=== PATIENT | female | born 1965 | race Two or more races ===

== ENCOUNTER → 2023-03-17 07:47 | Outpatient (REF) | payer MEDICAID, SELFPAY ==
--- NOTE | 2023-03-17 08:10 | CA_ITS ---
Acquisition Time: 2023-03-17 08:29:18 Total Exercise Time: 00:03:36 Test Indications: SOBVARGAS Medications: SEE H Protocol: LEI Max HR: 144 BPM 88% of Pred: 162 BPM Max BP: 150/088 mmHG Max Work Load: 5.2 METS Exercise stress test exercise 3 min 36 sec of Lei protocol acheiving 89% MPHR, with request to stop due to moderate to severe SOB, without chest discomfort, with normotensive response to exercise, without EKG changes at achieved workload. Test reviewed with Dr. Cavazos. Referred By: Alexandria Silva Overread By: Adri Peters
== END ==
LOC: HO.CARD 07:47
PROVIDERS: PCP Family Medicine; Visit Provider Family Medicine
DX: R06.09 Other forms of dyspnea (principal)
CPT/HCPCS: 93017

== ENCOUNTER → 2023-03-17 08:10 | Outpatient (BNV) | payer MEDICAID, SELFPAY | PROVIDERS: PCP Family Medicine; Visit Provider Nurse Practitioner | DX: R06.09 Other forms of dyspnea (principal) | CPT/HCPCS: 93016; 93018 ==

== ENCOUNTER 2023-04-11 09:22 | Outpatient (REF) | payer MEDICAID, SELFPAY ==
[2023-04-11 14:24] LABS: MANUAL DIFF FLAG NO
[2023-04-11 14:29] LABS: Basophils Absolute Auto 0.1 X10*3/uL (0.0-0.2); Basophils Percent Auto 0.6 % (0-2); Eosinophils Absolute Auto 0.2 X10*3/uL (0.0-0.4); Eosinophils Percent Auto 1.7 % (0-4); Hematocrit 38.7 % (37.0-47.0); Hemoglobin 11.8 g/dl (12.0-16.0); Imm Gran Abs Auto 0.03 X10*3/uL (0.00-0.03); Imm Gran Pct Auto 0.3 % (0.0-0.4); Lymphocytes Absolute Auto 4.1 X10*3/uL (1.2-4.9); Mean Corpuscular HGB Conc 30.5 g/dl (31.0-35.0); Mean Corpuscular Hemoglobin 26.5 pg (27.0-33.0); Mean Corpuscular Volume 86.8 fL (80.0-98.0); Mean Platelet Volume 10.7 fL (9.4-12.3); Monocytes Absolute Auto 0.6 X10*3/uL (0.1-1.2); Monocytes Percent Auto 5.7 % (2-11); Neutrophils Absolute Auto 5.3 x10*3/uL (2.0-8.3); Neutrophils Percent Auto 51.7 % (45-73); Platelet Count 336 X10*3/uL (160-400); Red Blood Count 4.46 X10*6/uL (4.20-5.50); Red Cell Distribution Width 15.2 % (11.0-16.0); White Blood Count 10.3 X10*3/uL (4.8-10.8)
[2023-04-11 15:01] LABS: Alanine Aminotransferase 12 U/L (0-31); Albumin Level 3.8 g/dL (3.5-5.0); Alkaline Phosphatase 144 U/L (39-117); Anion Gap 13 (12-20); Aspartate Amino Transferase 12 U/L (5-31); Bilirubin Total 0.3 mg/dL (0.0-1.0); Blood Urea Nitrogen 14 mg/dL (9-16); Calcium 9.4 mg/dL (8.4-10.2); Carbon Dioxide 26 mmol/L (22-29); Chloride 108 mmol/L (96-108); Cholesterol 137 mg/dL (<200); Estimated Glomerular Filt Rate 59; Glucose Fasting 99 mg/dL (60-99); HDL Cholesterol 44 mg/dL (>40); LDL Cholesterol Calculated 65 mg/dL (<100); Sodium 143 mmol/L (135-145); Total Protein 7.7 g/dL (6.5-8.0); Triglycerides 140 mg/dL (<150)
[2023-04-11 15:15] LABS: Ferritin 23 ng/mL (10-250)
[2023-04-11 15:20] LABS: Creatinine Urine 123.58 mg/dL; Microalbum/Creatinine Ratio Ur 25.8 ug/mg cr (<30)
[2023-04-12 04:12] LABS: HBS Num1 0.21 mIU/mL (0-7.99); ~Hepatitis B Surface Antibody NONREACTIVE (Nonreactive)
== END 2023-04-11 09:23 | disposition home or self-care (01) ==
LOC: HO.CHCLDS 09:22
PROVIDERS: Visit Provider Family Medicine
DX: E11.9 Type 2 diabetes mellitus without complications (principal); M79.89 Other specified soft tissue disorders; E61.1 Iron deficiency
CPT/HCPCS: 36415; 80053; 80061; 82043; 82570; 82728; 84443; 85025; 86706

== ENCOUNTER 2023-04-13 09:19 | Outpatient (REF) | payer MEDICAID, SELFPAY | END 2023-04-13 09:20 | disposition home or self-care (01) | LOC: HO.MAMMO 09:19 | PROVIDERS: PCP Family Medicine; Visit Provider Family Medicine | DX: Z12.31 Encounter for screening mammogram for malignant neoplasm of breast (principal) | CPT/HCPCS: 77063; 77067 ==

== ENCOUNTER → 2023-04-13 09:45 | Outpatient (BNV) | payer MEDICAID, SELFPAY | PROVIDERS: PCP Family Medicine; Visit Provider Radiology Diagnostic Radiology | DX: Z12.31 Encounter for screening mammogram for malignant neoplasm of breast (principal) | CPT/HCPCS: 77063; 77067 ==

== ENCOUNTER 2023-04-14 08:56 | Outpatient (REF) | payer MEDICAID, SELFPAY ==
[2023-04-14 14:38] LABS: Alkaline Phosphatase 143 U/L (39-117); Gamma Glutamyl Transpeptidase 43 U/L (7-33)
== END 2023-04-14 08:57 | disposition home or self-care (01) ==
LOC: HO.CHCLDS 08:56
PROVIDERS: Visit Provider Family Medicine
DX: R74.8 Abnormal levels of other serum enzymes (principal)
CPT/HCPCS: 36415; 82977; 84075

== ENCOUNTER 2023-05-02 09:41 | Outpatient (REF) | payer MEDICAID, SELFPAY ==
--- NOTE | ~2023-05-02 | US_ITS ---
EXAMINATION: US ABDOMEN COMPLETE CLINICAL INFORMATION: Transaminitis. COMPARISON: None available. TECHNIQUE: Real-time imaging of the abdominal viscera. FINDINGS: PANCREAS: Normal. ABDOMINAL AORTA: The upper abdominal aorta is normal in caliber. The distal abdominal aorta is obscured by bowel gas. INFERIOR VENA CAVA: Visualized portions are normal. LIVER: The liver is normal in size. The liver contour is normal. There is diffuse increased liver parenchymal echogenicity, consistent with hepatic steatosis. No focal hepatic lesion. There is no intrahepatic biliary duct dilatation seen. GALLBLADDER: Surgically absent. COMMON BILE DUCT: The common bile duct measures 1.1 cm in diameter likely compensation for cholecystectomy. RIGHT KIDNEY: Multiple small simple cysts. No hydronephrosis. Numerous tiny echogenic reflectors possibly representing calculi versus vascular calcifications. The kidney measures 12.5 cm in maximum dimension. LEFT KIDNEY: Multiple small simple cysts. No hydronephrosis. Numerous tiny echogenic reflectors possibly representing calculi versus vascular calcifications. The kidney measures 12.7 cm in maximum dimension. SPLEEN: Normal. The spleen measures 8.0 cm in maximum dimension. FREE FLUID: None. US/US abdomen complete IMPRESSION: Hepatic steatosis. Numerous small simple cysts throughout both kidneys. No imaging follow-up is recommended. Numerous tiny echogenic foci within both kidneys possibly representing nonobstructing calculi versus vascular calcifications.
== END 2023-05-02 09:42 | disposition home or self-care (01) ==
LOC: HO.US 09:41
PROVIDERS: PCP Family Medicine; Visit Provider Family Medicine
DX: R74.01 Elevation of levels of liver transaminase levels (principal)
CPT/HCPCS: 76700

== ENCOUNTER 2023-09-05 10:02 | Outpatient (REF) | payer MEDICAID, SELFPAY ==
[2023-09-05 14:42] LABS: MANUAL DIFF FLAG NO
[2023-09-05 14:54] LABS: Basophils Absolute Auto 0.1 X10*3/uL (0.0-0.2); Basophils Percent Auto 0.5 % (0-2); Eosinophils Absolute Auto 0.1 X10*3/uL (0.0-0.4); Eosinophils Percent Auto 1.3 % (0-4); Hematocrit 40.3 % (37.0-47.0); Hemoglobin 12.3 g/dl (12.0-16.0); Imm Gran Abs Auto 0.06 X10*3/uL (0.00-0.03); Imm Gran Pct Auto 0.6 % (0.0-0.4); Lymphocytes Absolute Auto 4.1 X10*3/uL (1.2-4.9); Lymphocytes Percent Auto 41.1 % (20-40); Mean Corpuscular HGB Conc 30.5 g/dl (31.0-35.0); Mean Corpuscular Hemoglobin 27.3 pg (27.0-33.0); Mean Corpuscular Volume 89.4 fL (80.0-98.0); Mean Platelet Volume 10.2 fL (9.4-12.3); Monocytes Absolute Auto 0.6 X10*3/uL (0.1-1.2); Monocytes Percent Auto 6.1 % (2-11); Neutrophils Absolute Auto 5.1 x10*3/uL (2.0-8.3); Neutrophils Percent Auto 50.4 % (45-73); Platelet Count 371 X10*3/uL (160-400); Red Blood Count 4.51 X10*6/uL (4.20-5.50); Red Cell Distribution Width 15.5 % (11.0-16.0)
[2023-09-05 15:33] LABS: Iron 66 mcg/dL (30-160); Percent Iron Saturation 20 % (15-50); Total Iron Binding Capacity 334 mcg/dL (228-428); Unsaturated Iron Binding 268 ug/dL
[2023-09-05 15:38] LABS: Ferritin 47 ng/mL (10-250)
== END 2023-09-05 10:03 | disposition home or self-care (01) ==
LOC: HO.CHCLDS 10:02
PROVIDERS: Visit Provider Family Medicine
DX: E61.1 Iron deficiency (principal)
CPT/HCPCS: 36415; 82728; 83540; 85025

== ENCOUNTER 2023-09-27 12:43 | Outpatient (AMB) | payer MEDICAID, SELFPAY ==
--- NOTE | 2023-09-27 13:09 | A.OFFVIS_ITS ---
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 arredondo/dyspnea on exertion Intake Note: New patient dx sob on exertion also c/o fatigue Optical Laboratory Technician Required: Yes Optical Laboratory Technician [place] [facility] [place] Darwin sullivan Allergies Penicillins Allergy (Mild, Verified 09/27/23 13:20) Rash Medication List - Last Reconciled 09/27/23 by Jose Cavazos MD acetaminophen ER 650 mg PO Q8H PRN atorvastatin 40 mg PO DAILY clindamycin HCl 150 mg PO QID gabapentin 800 mg PO BEDTIME hydrochlorothiazide 12.5 mg PO QAM levothyroxine 100 mcg PO DAILY lisinopril 40 mg PO QAM metformin 500 mg PO ropinirole 0.5 mg PO BID HPI HPI Comments History of Present Illness Details Cristina was referred here for evaluation of exertional symptoms. She has a 58-year-old female, history obtained with help of for certified pigment mixer over the telephone. Patient with at least 4 years' history of hypertension, diabetes, hyperlipidemia as well as obesity. Patient was referred here because over the last 6 months she has been having increasing symptoms of exertional shortness of breath and fatigue. She only gets this symptoms when she is going up a flight of stairs or walking up an incline. She does not get associated chest pain. She denies any symptoms of orthopnea, PND, leg edema. Denies any symptoms of prolonged palpitation irregular heartbeat. No lightheadedness, syncope. She takes all her medications. [facility] Medical History Obesity Hyperlipidemia Diabetes HTN (hypertension) Surgical History Hx of tonsillectomy Family History Father CAD (coronary artery disease) Mother HTN (hypertension) Social History Patient Tobacco Use Status: Never used Tobacco Review of Systems Const Denies chills, Denies daytime sleepiness, Denies fatigue, Denies fever(s), Denies frequent falls, Denies poor appetite, Denies snoring, Denies stops breathing during sleep, Denies weakness, Denies weight gain and Denies weight loss Eyes Denies loss of vision ENT Denies dizziness and Denies hearing loss Card Denies chest pain, Denies claudication, Denies leg edema, Denies lightheadedness, Denies palpitations, Denies dyspnea, Denies dyspnea on exertion and Denies orthopnea Resp Denies cough, Denies excessive phlegm production, Denies dyspnea, Denies dyspnea on exertion, Denies snoring and Denies wheezing GI Denies abdominal pain, Denies hematochezia, Denies change in bowel habits, Denie s nausea and Denies vomiting Denies urinary frequency and Denies dysuria Musc Denies arthralgias, Denies muscle weakness, Denies numbness and Denies other (frequent falls) Skin/Breast Denies nail changes and Denies rash Neuro Denies Abnormal speech present, Denies dizziness, Denies frequent falls, Denies loss of vision, Denies memory loss, Denies numbness and Denies weakness Psych Denies depression and Denies memory loss Endo Denies fatigue and Denies palpitations Milton/Lymph Reports easy bruising and Reports other (anemia) Aller/Immun Denies wheezing Physical Exam Vital Signs: Last Vital Signs Pulse 73 09/27/23 13:13 BP 120/76 09/27/23 13:13 BMI result Body Mass Index 49.9 Const General: cooperative, comfortable, no acute distress, alert and awake Nutritional Appearance: obese centrally obese Orientation/consciousness: patient oriented x3 Limitations: ambulation with cane HEENT Head: Yes normocephalic and Yes atraumatic Neck Neck: Yes trachea midline, Yes supple and Yes no JVD Resp Effort & Inspection: normal respiratory effort Auscultation: clear to auscultation bilaterally Cardio Jugular venous distension: no JVD Palpation: normal PMI Rate: regular rate Rhythm: regular rhythm Heart sounds: S1 normal heart sound present, S2 normal heart sound present, no click, no gallops, no murmurs and no rubs GI Auscultation: normal bowel sounds Skin General skin exam: no rashes or lesions noted Neuro General: patient oriented x3 and no focal motor deficits Speech: No Abnormal speech present Extrem General: Yes no clubbing, cyanosis or edema Office Procedures EKG Details: EKG shows normal sinus rhythm with diffuse T-wave changes in the anterior and anterolateral and high lateral leads most likely suggestive of repolarization abnormality 08234-[id number], Complete Assessment & Plan Assessment & Plan (1) SOB (shortness of breath) on exertion: Code(s): R06.02 - Shortness of breath Plan: New onset exertional shortness of breath in this middle-aged woman with multiple risk factors for obstructive coronary artery disease. Will obtain a vasodilating myocardial perfusion imaging as patient can not walk on the treadmill. Will also obtain echocardiogram to evaluate LV systolic and diastolic function to evaluate for pulmonary hypertension as a cause of her exertional shortness of breath. If these tests are within acceptable limits, likely that this could be related to restrictive pulmonary defect related to obesity and/or deconditioning from her lack of exercise. Also consider pulmonary evaluation at that point in time. A blood pressure is currently well optimized. Advised to continue current therapy. Importance of good blood pressure control was discussed. Continue CPAP therapy. Aggressive participate in weight loss program should be pursued. Diabetes under your care with goal he moglobin A1c less than 7%. Goal LDL less than 70 mg/dL. Will follow up in the clinic in 6 weeks time after testing. Thank you for allowing me to partake in the care Coding Level of Care Code New Pt Level 4 (49553) Diagnoses SOB (shortness of breath) on exertion R06.02 CPT Codes EKG - CPT: 62175-[id number], Complete ([id number])
[2023-09-27 13:13] VITALS: BP 120/76; PULSE 73; BMI 49.9
== END 2023-09-27 13:47 | disposition home or self-care (01) ==
PROVIDERS: PCP Family Medicine; Visit Provider Internal Medicine Cardiovascular Disease
DX: R06.02 Shortness of breath (principal)
CPT/HCPCS: 93010; 99204

== ENCOUNTER → 2023-09-27 12:43 | Outpatient (BNVA) | payer MEDICAID, SELFPAY | PROVIDERS: PCP Family Medicine; Visit Provider Internal Medicine Cardiovascular Disease | DX: R06.02 Shortness of breath (principal) | CPT/HCPCS: 93005; 99202 ==

== ENCOUNTER 2023-10-26 10:06 | Outpatient (REF) | payer MEDICAID, SELFPAY | END 2023-10-26 10:07 | disposition home or self-care (01) | LOC: HO.SH 10:06 | PROVIDERS: PCP Family Medicine; Visit Provider Family Medicine | DX: Z01.118 Encounter for examination of ears and hearing with other abnormal findings (principal); H90.41 Sensorineural hearing loss, unilateral, right ear, with unrestricted hearing on the contralateral side | CPT/HCPCS: 92557; 92567 ==

== ENCOUNTER 2023-11-25 09:13 | Outpatient (REF) | payer MEDICAID, SELFPAY ==
[2023-11-25 15:06] LABS: Anion Gap 17 (12-20); Blood Urea Nitrogen 36 mg/dL (9-16); Calcium 9.1 mg/dL (8.4-10.2); Carbon Dioxide 24 mmol/L (22-29); Chloride 104 mmol/L (96-108); Estimated Glomerular Filt Rate 32; Glucose Random 94 mg/dL (60-115); Sodium 141 mmol/L (135-145); Uric Acid 13.2 mg/dL (2.4-5.7)
== END 2023-11-25 09:14 | disposition home or self-care (01) ==
LOC: HO.CHCLDS 09:13
PROVIDERS: Visit Provider Family Medicine
DX: N17.9 Acute kidney failure, unspecified (principal); M19.90 Unspecified osteoarthritis, unspecified site
CPT/HCPCS: 36415; 80048; 84550

== ENCOUNTER 2023-12-22 11:41 | Outpatient (REF) | payer MEDICAID, SELFPAY ==
[2023-12-22 14:39] LABS: Uric Acid 7.3 mg/dL (2.4-5.7)
== END 2023-12-22 11:42 | disposition home or self-care (01) ==
LOC: HO.CHCLDS 11:41
PROVIDERS: Visit Provider Student in an Organized Health Care Education/Training Program
DX: M10.9 Gout, unspecified (principal)
CPT/HCPCS: 36415; 84550

== ENCOUNTER → 2023-12-29 10:43 | Outpatient (REF) | payer MEDICAID, SELFPAY ==
--- NOTE | 2023-12-29 10:47 | CA_ITS ---
Transthoracic Echocardiogram Patient (Last, First, Middle): Cristina Alexandra J Gender: Female Date of : 1965 Age: 58 Procedure Date: 12/29/2023 Procedure Type: Transthoracic Echocardiogram Location: OP Height: 157.48 cm Weight: 116.58 kg BSA: 2.13 m2 Heart Rate: 55 bpm BP: 140 / 80 mmHg Produce Shipper: TO Referring MD: Jose Cavazos MD Symptoms: R06.02 - Shortness of breath Study Quality: Adequate ECG Rhythm: Bradycardia Conclusions: - The left ventricular systolic function is mildly decreased. The calculated ejection fraction is 50% by biplane method. - The left atrium is mildly dilated. - There is mild aortic valve regurgitation. - There is mild mitral valve regurgitation. - There is mild tricuspid valve regurgitation. - Mild pulmonary hypertension is present. - There is mild dilatation of the ascending aorta measuring 3.90 cm. Findings Left Ventricle Normal left ventricular cavity size. There is normal left ventricular wall thickness. The left ventricular systolic function is mildly decreased. The calculated ejection fraction is 50% by biplane method. There is mild global hypokinesis. Evidence suggests grade I (mild) diastolic dysfunction. Right Ventricle Mildly increased right ventricular cavity size. Atria The left atrium is mildly dilated. The right atrium is normal in size. Aortic Valve There is a normal trileaflet aortic valve. There is no aortic valve stenosis. There is mild aortic valve regurgitation. Mitral Valve There is mild anterior mitral leaflet thickening. There is mild mitral valve regurgitation. There is no mitral valve stenosis. Pulmonic Valve The pulmonic valve is likely normal. Tricuspid Valve There is mild tricuspid valve regurgitation. Mild pulmonary hypertension is present. Great Vessels The aortic arch is normal in size. There is mild dilatation of the ascending aorta measuring 3.90 cm. Venous The inferior vena cava is mildly dilated and collapses less than 50% with inspiration. Pericardium/Pleural There is no evidence of pericardial effusion. Prior Study Comparison No prior study available for comparison. Measurements 2D Linear Measurements IVSd: 1.05 0.6-0.9/0.6-1.0 cm LVIDd: 5.62 3.9-5.3/4.2-5.9 cm LVIDd Index: 2.64 2.4-3.2/2.2-3.1 cm/m2 LVIDs: 3.92 2.0-3.6 cm LVPWd: 0.85 0.7-1.1 cm LA Diam: 3.70 2.7-3.8/3.0-4.0 cm LAIDs Index: 1.74 1.5-2.3 cm/m2 LV Mass: 258.19 67-162/88-224 g LV Mass Index: 121.22 43-95/49-115 g/m2 LVOT Diam: 2.00 3.0+(-)1.3 cm 2D Systolic Function EF 4C: 45.80 >55% EF 2C: 50.00 >55% EF BiP: 49.50 >55% Mitral Valve MV Pk E: 0.68 MV PK A: 0.36 MV Decel Time: 276.00 E/A: 1.90 E'Lateral: 5.87 E'Medial: 4.68 E/E' Med: 14.50 E/E' Lat: 11.50 PHT: 81.00 MVA PHT: 2.72 Decel [place]: 2.45 Aortic Valve AoV Pk Sergio: 1.42 AoV Mn Sergio: 0.94 AoV VTI: 0.33 AoV Pk Grad: 8.00 Aov Mn Grad: 4.00 BETSEY Cont.VTI: 2.13 AI Pk Sergio: 4.57 AI [place]: 1.71 LVOT LVOT Pk Sergio: 0.88 LVOT Mn Sergio: 0.60 LVOT VTI: 0.23 LVOT Pk Grad: 3.00 LVOT Mn Grad: 2.00 LVOT Diam: 2.00 LVOT Area: 3.14 Diastolic Function MV Pk E: 0.68 MV Pk A: 0.36 E/A: 1.90 E'Medial: 4.68 E/E' Med: 14.50 E' Laterial: 5.87 E/E' Lat: 11.50 Right Ventricle TAPSE (mm): 24.80 TVS' Sergio: 10.10 Tricuspid Valve TR Pk Sergio: 2.74 TR Pk Grad: 30.00 RA Press: 15.00 RVSP: 45.00 Great Vessels Aorta Sinus of Valsalva: 3.27 2.0-3.5 cm Ao Asc: 3.90 2.1-3.4 cm Ao Arch: 3.50 Updated in Other Vendor System with Status of Final Rafal Ovalle MD electronically signed on 12/31/2023 10:48:11 AM with status of Final
== END ==
LOC: HO.CARD 10:43
PROVIDERS: PCP Family Medicine; Visit Provider Internal Medicine Cardiovascular Disease
DX: R06.02 Shortness of breath (principal)
CPT/HCPCS: 93306

== ENCOUNTER → 2023-12-29 10:47 | Outpatient (BNV) | payer MEDICAID, SELFPAY | PROVIDERS: PCP Family Medicine; Visit Provider Internal Medicine | DX: I35.1 Nonrheumatic aortic (valve) insufficiency (principal); I34.0 Nonrheumatic mitral (valve) insufficiency; I36.1 Nonrheumatic tricuspid (valve) insufficiency | CPT/HCPCS: 93306 ==

== ENCOUNTER 2024-01-16 13:23 | Outpatient (AMB) | payer MEDICAID, SELFPAY ==
[2024-01-16 13:30] VITALS: BP 160/82; PULSE 64; BMI 50.7
--- NOTE | 2024-01-16 13:30 | MHC.OFFVIS ---
Vital Signs 01/16/24 13:30 Height 5 ft Weight 259 lb 11.272 oz BMI 50.7 BP 160/82 H Blood Pressure Location Lt brachial Position Sitting Pulse 64 Pulse Source Pulse Oximeter Intake Visit Reasons: followup after echo Enforcement Manager Required: Yes Enforcement Manager Language: Buyer Intern Name: nate carver [id number] Allergies Penicillins Allergy (Mild, Verified 01/16/24 13:34) Rash Medication List - Last Reconciled 01/16/24 by Christi Guillen NP-C acetaminophen ER 650 mg PO Q8H PRN atenolol 50 mg PO DAILY atorvastatin 40 mg PO DAILY atorvastatin 40 mg PO DAILY colchicine 0.6 mg PO BID gabapentin 800 mg PO BEDTIME levothyroxine 100 mcg PO DAILY lisinopril 40 mg PO QAM metformin 500 mg PO ropinirole 0.5 mg PO BID HPI HPI followup after echo: Details: Cristina is a 58-year-old female past medical history of obesity, hypertension, hyperlipidemia, diabetes who was recently evaluated for increased shortness of breath and fatigue. She underwent an echocardiogram and now presents for follow-up. A pharmacological nuclear stress test was ordered however patient was not able to complete due to claustrophobia. Today she reports that she continues to have shortness of breath and fatigue with activity. She tells me she does not engage in any routine exertional activities due to bilateral knee pains. She denies any underlying respiratory issues. She has no chest discomfort at rest or with activity. No PND, orthopnea or edema. No lightheadedness, presyncope, syncope, falls. Sleeps with 1 pillow. Takes meds as directed. PFSH Medical History Obesity Hyperlipidemia Diabetes HTN (hypertension) Surgical History Hx of tonsillectomy Family History Father CAD (coronary artery disease) Mother HTN (hypertension) Social History Patient Tobacco Use Status: Never used Tobacco Review of Systems Const All systems reviewed & are unremarkable except as noted in HPI and below ENT Denies dizziness Card Denies chest pain, Denies chest pain at rest, Denies chest pain with activity, Denies rapid heart rate, Denies pedal edema, Denies edema, Denies leg edema, Denies lightheadedness, Denies palpitations, Reports dyspnea, Reports dyspnea on exertion and Denies orthopnea Resp Denies cough, Reports dyspnea and Reports dyspnea on exertion GI Denies hematochezia and Denies change in stool character Musc Denies abnormal gait, Denies limited range of motion, Denies muscle cramps, Denies muscle weakness, Denies numbness, Denies radiating pain into limb, Denies stiffness and Denies tingling Neuro Denies abnormal gait, Denies dizziness, Denies numbness and Denies tingling Endo Denies palpitations Physical Exam Vital Signs: Last Vital Signs Pulse 64 01/16/24 13:30 BP 160/82 H 01/16/24 13:30 BMI result Body Mass Index 50.7 Const General: cooperative, healthy appearing, comfortable and no acute distress Orientation/consciousness: patient oriented x3 Neck Neck: Yes normal visual inspection Resp Effort & Inspection: normal respiratory effort Auscultation: clear to auscultation bilaterally, no crackles, no rales, no rhonchi and no wheezes Cardio Jugular venous distension: no JVD Rate: regular rate Rhythm: regular rhythm Heart sounds: S1 normal heart sound present, S2 normal heart sound present, no murmurs and no rubs Neuro General: patient oriented x3 Extrem General: Yes normal to inspection and No no pedal edema Psych Appearance: grossly normal Mental Status: mental status grossly normal Speech and movement: Normal speech and movement present Assessment & Plan Assessment & Plan (1) SOB (shortness of breath) on exertion: Code(s): R06.02 - Shortness of breath Category: Medical Plan: Recent cardiac evaluation for symptom of shortness of breath and fatigue. She has cardiac risk factors of hypertension, hyperlipidemia, diabetes, obesity. She has no known cardiac history. An echocardiogram done 12/29/2023 shows EF 50%, left atrium mildly dilated, mild aortic regurgitation, mild mitral regurgitation, mild tricuspid regurgitation, mild pulmonary hypertension, ascending aorta 3.9 cm. A pharmacological nuclear stress test was ordered however patient not able to complete due to claustrophobia. She has not able to walk on a treadmill as she ambulates with a cane and has bilateral knee issues. Last year she did a exercise stress test with limited exercise capacity and moderate to severe shortness of breath. Unable to rule out cardiac cause at this time due to limited testing. Recommend a CTA of the coronary arteries for further evaluation as she does have multiple cardiac risk factors. Reviewed this test with her and showed her images of CT scan. She says with her claustrophobia she should be able to tolerate this type of scan. Confirms she is unable to complete the nuclear stress test. Will order a CTA of the coronary arteries. She believe she may have had issues with contrast in the past, itching. She may require premedication. Her last creatinine was elevated at 1.64 however this is not her typical. Looks like hydrochlorothiazide was stopped. Will have her recheck basic metabolic profile. Signs and symptoms of angina reviewed. Emergency care if needed for symptoms. Cardiology follow-up when CTA results are available. (2) HTN (hypertension): Code(s): I10 - Essential (primary) hypertension Category: Medical Plan: Elevated at this visit, improved on recheck. She is on lisinopril and atenolol. No changes made at this time. If blood pressure is elevated going forward then will add amlodipine. (3) Abnormal stress test: Code(s): R94.39 - Abnormal result of other cardiovascular function study Category: Medical Plan: Poor exercise tolerance and moderate to severe shortness of breath on ETT 03/2023 (4) Hyperlipidemia: Code(s): E78.5 - Hyperlipidemia, unspecified Category: Medical Plan: [place] LDL goal less than 70 in patient with diabetes. Labs done 04/11/2023 showed LDL 65. Continue atorvastatin 40 mg daily. Plan Time spent on chart review, documentation, interview and assessment Orders: Orders CT Cardiac Coronary Angio Today R06.02 - Shortness of breath, R94.39 - Abnormal result of other cardiovascular function study Basic Metabolic Panel Today R94.39 - Abnormal result of other cardiovascular function study Coding Level of Care Code Est Pt Level 4 (60763) Diagnoses SOB (shortness of breath) on exertion R06.02 HTN (hypertension) I10 Abnormal stress test R94.39 Hyperlipidemia E78.5 Time Spent (min) 30
== END 2024-01-16 14:11 | disposition home or self-care (01) ==
PROVIDERS: PCP Family Medicine; Visit Provider Nurse Practitioner Family
DX: R06.02 Shortness of breath (principal); I10 Essential (primary) hypertension; R94.39 Abnormal result of other cardiovascular function study; E78.5 Hyperlipidemia, unspecified
CPT/HCPCS: 99214

== ENCOUNTER → 2024-01-16 13:23 | Outpatient (BNVA) | payer MEDICAID, SELFPAY | PROVIDERS: PCP Family Medicine; Visit Provider Nurse Practitioner Family | DX: R06.02 Shortness of breath (principal); I10 Essential (primary) hypertension; R94.39 Abnormal result of other cardiovascular function study; E78.5 Hyperlipidemia, unspecified | CPT/HCPCS: 99212 ==

== ENCOUNTER 2024-01-20 09:04 | Outpatient (REF) | payer MEDICAID, SELFPAY ==
[2024-01-20 14:42] LABS: Anion Gap 15 (12-20); Blood Urea Nitrogen 19 mg/dL (9-16); Calcium 9.3 mg/dL (8.4-10.2); Carbon Dioxide 23 mmol/L (22-29); Chloride 109 mmol/L (96-108); Estimated Glomerular Filt Rate 50; Glucose Random 96 mg/dL (60-115); Potassium 4.2 mmol/L (3.3-5.1); Sodium 143 mmol/L (135-145); Uric Acid 10.5 mg/dL (2.4-5.7)
== END 2024-01-20 09:05 | disposition home or self-care (01) ==
LOC: HO.CHCLDS 09:04
PROVIDERS: Visit Provider Family Medicine
DX: M10.9 Gout, unspecified (principal); R94.39 Abnormal result of other cardiovascular function study
CPT/HCPCS: 36415; 80048; 84550

== ENCOUNTER 2024-03-16 10:03 | Outpatient (REF) | payer MEDICAID, SELFPAY ==
[2024-03-16 14:59] LABS: Anion Gap 13 (12-20); Blood Urea Nitrogen 34 mg/dL (9-16); Calcium 8.9 mg/dL (8.4-10.2); Carbon Dioxide 26 mmol/L (22-29); Chloride 107 mmol/L (96-108); Estimated Glomerular Filt Rate 39; Glucose Random 103 mg/dL (60-115); Potassium 4.2 mmol/L (3.3-5.1); Sodium 142 mmol/L (135-145); Uric Acid 10.6 mg/dL (2.4-5.7)
== END 2024-03-16 10:04 | disposition home or self-care (01) ==
LOC: HO.CHCLDS 10:03
PROVIDERS: Visit Provider Family Medicine
DX: M10.9 Gout, unspecified (principal)
CPT/HCPCS: 36415; 80048; 84550

== ENCOUNTER 2024-04-18 08:46 | Outpatient (REF) | payer MEDICAID, SELFPAY ==
--- NOTE | ~2024-04-18 | MM_ITS ---
EXAMINATION: MM SCREENING DIGITAL BREAST TOMOSYNTHESIS, BILATERAL CLINICAL INFORMATION: Screening. Asymptomatic. COMPARISON: Mammography: Comparison is made with available priors TECHNIQUE: Digital breast mammography with tomosynthesis is performed in both the craniocaudal and mediolateral oblique views along with computer-aided detection (CAD). FINDINGS: There are scattered areas of fibroglandular density (ACR BI-RADS breast composition Category b). There are no significant masses, abnormal calcifications, or other abnormalities. MM/MM tomosynthesis screening BI IMPRESSION: No mammographic evidence of malignancy. ASSESSMENT: BI-RADS BI-RADS 1 - Negative RECOMMENDATION: Routine annual mammography screening. 1 year F/U This examination should not preclude the clinical evaluation of a suspicious palpable abnormality. This patient's information was entered into a reminder system with a target due date for their next mammogram. Electronically signed by: Monica Carrillo DO 05/01/2024 04:21 PM EDT
== END 2024-04-18 08:47 | disposition home or self-care (01) ==
LOC: HO.MAMMO 08:46
PROVIDERS: PCP Family Medicine; Visit Provider Family Medicine
DX: Z12.31 Encounter for screening mammogram for malignant neoplasm of breast (principal)
CPT/HCPCS: 77063; 77067

== ENCOUNTER → 2024-04-18 09:45 | Outpatient (BNV) | payer MEDICAID, SELFPAY | PROVIDERS: PCP Family Medicine; Visit Provider Internal Medicine | DX: Z12.31 Encounter for screening mammogram for malignant neoplasm of breast (principal) | CPT/HCPCS: 77063; 77067 ==

== ENCOUNTER 2024-04-30 09:37 | Outpatient (REF) | payer MEDICAID, SELFPAY ==
[2024-04-30 09:51] LABS: MANUAL DIFF FLAG NO
[2024-04-30 10:10] LABS: Basophils Percent Auto 0.5 % (0-2); Eosinophils Absolute Auto 0.3 X10*3/uL (0.0-0.4); Eosinophils Percent Auto 3.4 % (0-4); Hematocrit 39.5 % (37.0-47.0); Hemoglobin 12.1 g/dl (12.0-16.0); Imm Gran Abs Auto 0.02 X10*3/uL (0.00-0.03); Imm Gran Pct Auto 0.3 % (0.0-0.4); Lymphocytes Absolute Auto 4.1 X10*3/uL (1.2-4.9); Lymphocytes Percent Auto 52.2 % (20-40); Mean Corpuscular HGB Conc 30.6 g/dl (31.0-35.0); Mean Corpuscular Hemoglobin 27.3 pg (27.0-33.0); Mean Corpuscular Volume 89.2 fL (80.0-98.0); Mean Platelet Volume 10.3 fL (9.4-12.3); Monocytes Absolute Auto 0.6 X10*3/uL (0.1-1.2); Neutrophils Absolute Auto 2.8 x10*3/uL (2.0-8.3); Neutrophils Percent Auto 35.6 % (45-73); Platelet Count 231 X10*3/uL (160-400); Red Blood Count 4.43 X10*6/uL (4.20-5.50); Red Cell Distribution Width 14.6 % (11.0-16.0); White Blood Count 7.9 X10*3/uL (4.8-10.8)
[2024-04-30 11:14] LABS: Anion Gap 13 (12-20); Blood Urea Nitrogen 16 mg/dL (9-16); Carbon Dioxide 26 mmol/L (22-29); Chloride 109 mmol/L (96-108); Estimated Glomerular Filt Rate 44; Ferritin 36 ng/mL (10-250); Glucose Random 110 mg/dL (60-115); Iron 45 mcg/dL (30-160); Percent Iron Saturation 15 % (15-50); Potassium 4.2 mmol/L (3.3-5.1); Sodium 144 mmol/L (135-145); Total Iron Binding Capacity 297 mcg/dL (228-428); Unsaturated Iron Binding 252 ug/dL
== END 2024-04-30 09:38 | disposition home or self-care (01) ==
LOC: HO.LAB 09:37
PROVIDERS: PCP Family Medicine; Visit Provider Family Medicine
DX: E11.9 Type 2 diabetes mellitus without complications (principal); E61.1 Iron deficiency
CPT/HCPCS: 36415; 80048; 82728; 83540; 85025

== ENCOUNTER 2024-05-18 11:43 | Outpatient (AMB) | payer MEDICAID, SELFPAY ==
[2024-05-18 13:18] VITALS: BP 140/80; PULSE 70; BMI 50.8
--- NOTE | 2024-05-18 13:18 | MHC.OFFVIS ---
Vital Signs 05/18/24 13:18 Height 5 ft Weight 260 lb 2.327 oz BMI 50.8 BP 140/80 H Blood Pressure Location Lt brachial Position Sitting Pulse 70 Pulse Source Pulse Oximeter Intake Visit Reasons: f/u after CTA Software Licensing Specialist Required: Yes Software Licensing Specialist Name: [id number] Allergies Penicillins Allergy (Mild, Verified 01/16/24 13:34) Rash Medication List - Last Reconciled 05/18/24 by Christi Guillen NP-C acetaminophen ER 650 mg PO Q8H PRN allopurinol 200 mg PO BID atenolol 25 mg PO DAILY atorvastatin 40 mg PO DAILY colchicine 0.6 mg PO BID levothyroxine 100 mcg PO DAILY lisinopril 40 mg PO QAM metformin 500 mg PO pregabalin 300 mg PO DAILY verapamil ER 120 mg PO BEDTIME HPI HPI f/u after CTA: Details: Cristina is a 58-year-old female past medical history of obesity, hypertension, hyperlipidemia, diabetes who was recently evaluated for increased shortness of breath and fatigue. She underwent an echocardiogram which showed normal EF. A pharmacological nuclear stress test was ordered however patient was not able to complete due to claustrophobia. On last visit a CTA of the coronary arteries was ordered, completed and she now presents for follow-up. Today she reports that she has been doing well overall. She continues to have fatigue at times. She will have shortness of breath if she over exerts. Overall her breathing has not been bothersome for her. She tells me she does not engage in any routine exertional activities due to bilateral knee pains. She denies any underlying respiratory issues. She has no chest discomfort at rest or with activity. No PND, orthopnea or edema. No lightheadedness, presyncope, syncope, falls. Sleeps with 1 pillow. Takes meds as directed. Certified forklift driver used. [facility] Medical History Obesity Hyperlipidemia Diabetes HTN (hypertension) Surgical History Hx of tonsillectomy Family History Father CAD (coronary artery disease) Mother HTN (hypertension) Social History Patient Tobacco Use Status: Never used Tobacco Review of Systems Const Details: fatigue All systems reviewed & are unremarkable except as noted in HPI and below ENT Denies dizziness Card Details: sob if overexerts Denies chest pain, Denies chest pain with activity, Denies syncope, Denies rapid heart rate, Denies pedal edema, Denies edema, Denies leg edema, Denies lightheadedness, Denies palpitations, Denies dyspnea, Denies dyspnea on exertion and Denies orthopnea Resp Denies cough, Denies dyspnea and Denies dyspnea on exertion GI Denies hematochezia and Denies change in stool character Musc Denies abnormal gait, Denies muscle cramps, Denies muscle weakness, Denies numbness, Denies radiating pain into limb and Denies tingling Neuro Denies abnormal gait, Denies dizziness, Denies syncope, Denies numbness and Denies tingling Endo Denies palpitations Physical Exam Vital Signs: Last Vital Signs Pulse 70 05/18/24 13:18 BP 140/80 H 05/18/24 13:18 BMI result Body Mass Index 50.8 Const General: cooperative, healthy appearing, comfortable and no acute distress Orientation/consciousness: patient oriented x3 Neck Neck: Yes normal visual inspection Resp Effort & Inspection: normal respiratory effort Auscultation: clear to auscultation bilaterally, no crackles, no rales, no rhonchi and no wheezes Cardio Jugular venous distension: no JVD Rate: regular rate Rhythm: regular rhythm Heart sounds: S1 normal heart sound present, S2 normal heart sound present, no murmurs and no rubs Neuro General: patient oriented x3 Extrem General: Yes normal to inspection and No no pedal edema Psych Appearance: grossly normal Mental Status: mental status grossly normal Speech and movement: Normal speech and movement present Assessment & Plan Assessment & Plan (1) SOB (shortness of breath) on exertion: Code(s): R06.02 - Shortness of breath Category: Medical Plan: Recent cardiac evaluation for symptom of shortness of breath and fatigue. She has cardiac risk factors of hypertension, hyperlipidemia, diabetes, obesity. She has no known cardiac history. An echocardiogram done 12/29/2023 shows EF 50%, left atrium mildly dilated, mild aortic regurgitation, mild mitral regurgitation, mild tricuspid regurgitation, mild pulmonary hypertension, ascending aorta 3.9 cm. A pharmacological nuclear stress test was ordered however patient not able to complete due to claustrophobia. She was not able to walk on a treadmill as she ambulates with a cane and has bilateral knee issues. A CTA of the coronary arteries was done on 05/09/2024 showing only minimal stenosis, 1 -24% in the proximal LAD due to focal cold calcified plaque, limited study for noncalcified plaque due to body habitus, dilated main pulmonary artery which can be seen with pulmonary artery hypertension. Test results reviewed with her. Today she offers no anginal sounding symptoms. She seems to have mild nonobstructive coronary artery disease. She needs strict risk factor modification including good blood pressure, cholesterol, diabetes and weight control. Spent time reviewing this with her. She can continue to follow with her PCP. She can come back to Cardiology at any point for symptoms that are changing or concerning. Signs and symptoms of angina reviewed. Emergency care if needed for symptoms. Cardiology office visit p.r.n.. (2) HTN (hypertension): Code(s): I10 - Essential (primary) hypertension Category: Medical Plan: Blood pressure initially mildly elevated at 140/80. Recheck done by me 134/84. Superior blood pressure goal less than 130/85. Benefits of weight loss and increasing physical activity discussed with her. Reviewed low-salt diet. No med changes made at this time. (3) Abnormal stress test: Code(s): R94.39 - Abnormal result of other cardiovascular function study Category: Medical Plan: Poor exercise tolerance and moderate to severe shortness of breath on ETT 03/2023. CTA of the coronaries not showing any significant stenosis. Her shortness of breath with activity can be related to her morbid obesity and deconditioning. (4) Hyperlipidemia: Code(s): E78.5 - Hyperlipidemia, unspecified Category: Medical Plan: Superior LDL goal less than 70 in patient with diabetes. Labs done 04/11/2023 showed LDL 65. Labs are followed by her PCP Continue atorvastatin 40 mg daily. Hemoglobin A1c goal less than 7. Also followed by PCP. Plan Time spent on chart review, documentation, interview and assessment Coding Level of Care Code Est Pt Level 4 (60557) Complex EM visit Add On G2211 Diagnoses SOB (shortness of breath) on exertion R06.02 HTN (hypertension) I10 Abnormal stress test R94.39 Hyperlipidemia E78.5 Time Spent (min) 28
== END 2024-05-18 13:51 | disposition home or self-care (01) ==
PROVIDERS: PCP Family Medicine; Visit Provider Nurse Practitioner Family
DX: R06.02 Shortness of breath (principal); I10 Essential (primary) hypertension; R94.39 Abnormal result of other cardiovascular function study; E78.5 Hyperlipidemia, unspecified
CPT/HCPCS: 99214

== ENCOUNTER → 2024-05-18 11:43 | Outpatient (BNVA) | payer MEDICAID, SELFPAY | PROVIDERS: PCP Family Medicine; Visit Provider Nurse Practitioner Family | DX: R06.02 Shortness of breath (principal); R94.39 Abnormal result of other cardiovascular function study; E78.5 Hyperlipidemia, unspecified; I10 Essential (primary) hypertension | CPT/HCPCS: 99212 ==